=== PATIENT | female | born 1930 | race Caucasian/White ===

== ENCOUNTER → 2016-05-17 | Outpatient (CLI) | payer MEDICARE, OTHER ==
--- NOTE | 2016-05-17 16:26 | EKG REPORT ---
SEVERITY:- ABNORMAL ECG - ATRIAL-PACED RHYTHM NONSPECIFIC T ABNORMALITIES, LATERAL LEADS : Confirmed by: Chapito Man MD 17-May-2016 16:26:01
[2016-05-17 17:58] LABS: ANION GAP 11 (5-19); BLOOD UREA NITROGEN 21 mg/dL (7-20); CALCIUM 9.5 mg/dL (8.4-10.2); CARBON DIOXIDE 26 mmol/L (22-30); CHLORIDE 101 mmol/L (98-107); CREATININE RESULT 1.29 mg/dL (0.52-1.25); GLUCOSE 94 mg/dL (75-110); POTASSIUM 5.2 mmol/L (3.6-5.0); SODIUM 137.5 mmol/L (137-145)
[2016-05-17 18:00] LABS: HEMATOCRIT 30.8 % (36.0-47.0); HEMOGLOBIN 11.1 g/dL (12.0-15.5); HGB HCT DIFFERENCE 2.5; MEAN CORPUSCULAR HEMOGLOBIN 38.4 pg (27.0-33.4); MEAN CORPUSCULAR HGB CONC 36.1 g/dL (32.0-36.0); MEAN CORPUSCULAR VOLUME 106 fl (80-97); RED CELL DISTRIBUTION WIDTH 14.9 % (11.5-14.0); WHITE BLOOD COUNT 7.6 10^3/uL (4.0-10.5)
[2016-05-17 18:01] LABS: PROTHROMBIN TIME 15.5 SEC (11.4-15.4)
[2016-05-17 18:02] LABS: PARTIAL THROMBOPLASTIN TIME 41.7 SEC (23.5-35.8)
== END ==
LOC: OD 14:58
PROVIDERS: ATTEND Anesthesiology Pain Medicine
DX: Z01.810 Encounter for preprocedural cardiovascular examination (principal); Z01.811 Encounter for preprocedural respiratory examination; Z01.818 Encounter for other preprocedural examination
CPT/HCPCS: 36415; 71020; 80048; 85027; 85610; 85730; 93005; 93010

== ENCOUNTER → 2016-05-17 | Outpatient (CLI) | payer MEDICARE, OTHER | LOC: LAB 16:04 | PROVIDERS: ATTEND Anesthesiology Pain Medicine | DX: Z01.818 Encounter for other preprocedural examination (principal) | CPT/HCPCS: 87070 ==